=== PATIENT | female | born 1985 | race Caucasian/White ===

== ENCOUNTER 2017-11-22 19:31 | Emergency (ER) | payer MEDICAID ==
[~2017-11-22] VITALS: Ht 167.6 cm; Wt 129.6 kg
[2017-11-22] MEDS ORDERED: KETOROLAC TROMETHAMINE 10 MG TABLET PO ONE (20:45)
[2017-11-22] MEDS ORDERED: MAALOX/LIDOCAINE/NYSTATIN SUSP 5 ML ORAL.SYG PO ONE (20:45)
[2017-11-22 21:52] VITALS: BP 124/79
== END 2017-11-22 21:57 | disposition home or self-care (01) ==
LOC: EMS 19:33
DX: K02.9 Dental caries, unspecified (principal); K12.0 Recurrent oral aphthae
CPT/HCPCS: 99283